=== PATIENT | male | born 1940 | race Two or more races ===

== ENCOUNTER 2025-02-13 14:44 | Outpatient (CLI) | payer OTHER ==
--- NOTE | 2025-02-14 18:28 | DVHSR ---
APPROVED REPORT EXAM: Two-dimensional and M-mode echocardiogram with Doppler and color Doppler. INDICATION Murmur DIMENSIONS LVDd (3.8-5.7cm) LA (2D) 3.5 (1.9-4.0cm) Aortic Root 3.4 (2.0-3.7cm) LVDs (2.5-4.0cm) LA (MM) (1.9-4.0cm) Aortic Cusp Exc 0.4 (1.5-2.0cm) EF (%) 61.0 (55-70%) Rt. Atrium 3.4 (1.9-4.0cm) Asc. Aorta cm Mitral Valve Mitral Mitral Stenosis E wave 0.84m/s MV Mean GR. mmHg A wave 1.10m/s MV Peak GR. mmHg E/A ratio 0.8 2D MVA cm2 DECEL Time 326ms PRESS 1/2 Time ms Aortic Valve Aortic Valve Aortic Stenosis V1 1.01m/s AO Mean GR. 14mmHg V2 2.49m/s AO Peak GR. 25mmHg LVOT Diameter 1.7 (1.8-2.4cm) Doppler CAROLANN 0.92cm2 Pulmonic Valve V2 1.18m/s Tricuspid Valve TR Velocity 2.67m/s RVSP 31mmHg Conclusion Technically difficult study. Difficult acoustic windows. Concentric LVH. Aortic root enlargement. Left atrial enlargement. Significant thickening and calcification of the aortic leaflets with diminished excursion. The mitral and tricuspid are structurally normal. Left ventricular systolic performance is mildly diminished. EF is approximately 45-50%. There is predominantly anteroseptal hypokinesis. Right ventricular function is normal. Mild to moderate mitral and tricuspid regurgitation. There is a peak gradient of24 mmHg across the aortic valve with a mean gradient of14 mmHg. This is consistent with mild aortic sclerosis.
== END 2025-02-13 17:00 | disposition home or self-care (01) ==
LOC: XYW 14:44 → EDSEX 14:44 → XYW 17:00
PROVIDERS: ATTEND Internal Medicine
DX: I08.1 Rheumatic disorders of both mitral and tricuspid valves (principal); I51.7 Cardiomegaly; R06.02 Shortness of breath; R07.9 Chest pain, unspecified; R01.1 Cardiac murmur, unspecified
CPT/HCPCS: 93306